=== PATIENT | male | born 1955 ===

== ENCOUNTER 2023-06-11 21:11 | Observation (INO) ==
[2023-06-11] MEDS: Morphine 4 MG/ML VIAL (1 ml) IV ONE (22:01)
[2023-06-11] MEDS: Lactated Ringers 1000 ml BAG 1,000 ML IV ONE (22:03)
[2023-06-11 22:14] LABS: ABS Eosinophils 0.1 10^3/uL (0.0-0.5); ABS Lymphocytes 0.7 10^3/uL (1.0-4.8); ABS Monocytes 0.6 10^3/uL (0.0-1.1); ABS Neutrophils 6.5 10^3/uL (1.5-7.6); ABS Nucleated RBC 0.01 10^3/ul; Eosinophil % 0.9 %; Hematocrit 48.4 % (38-53); Hemoglobin 16.7 g/dL (13.2-16.3); Lymphocyte % 9.3 %; Mean Corpuscular Hemoglobin 30.5 pg (27-33); Mean Corpuscular Hgb Conc 34.4 g/dL (31-36); Mean Corpuscular Volume 88.6 fL (80-97); Mean Platelet Volume 8.1 fL (7.5-11.2); Nucleated Red Blood Cells % 0.1 %/100WBC (0.0-0.8); Platelet Count 161 10^3/uL (150-450); Red Blood Count 5.46 10^6/uL (4.06-5.63); Red Cell Distribution Width 13.8 % (12-17)
[2023-06-11 23:06] LABS: Albumin 4.5 g/dL (3.2-5.2); Albumin/Globulin Ratio 1.9 (1-3); Calcium 9.6 mg/dL (8.6-10.3); Creatinine, Serum 0.9 mg/dL (0.67-1.17); Globulin 2.4 g/dL (2-4); Potassium 4.2 mmol/L (3.5-5.0); Total Bilirubin 0.7 mg/dL (0.2-1.0); Total Protein 6.9 g/dL (6.4-8.9)
[2023-06-11] MEDS ORDERED: Ondansetron 4 mg VIAL 2 MG/ML 2 ml VIAL ONE (23:44)
[2023-06-11] MEDS: Ondansetron 4 mg VIAL 2 MG/ML 2 ml VIAL IV ONE (23:46)
[2023-06-12] MEDS: Lactated Ringers 1000 ml BAG 1,000 ML IV ONE (00:07)
[2023-06-12] MEDS: Iohexol 300 (CONTRAST) 10 ML SDV IV ONE (01:29)
[2023-06-12] MEDS: Morphine 4 MG/ML VIAL (1 ml) IV ONE (02:53)
[2023-06-12] MEDS: Morphine 2 MG/ML SYRINGE IV PRN (05:19)
[2023-06-12] MEDS ORDERED: Morphine 2 MG/ML SYRINGE IV PRN (06:16)
[2023-06-12] MEDS ORDERED: HYDROmorphone 1 MG/1 ML SYRINGE IV SLOW PU PRN (06:17)
[2023-06-12] MEDS ORDERED: Ondansetron 4 mg VIAL 2 MG/ML 2 ml VIAL IV PRN (06:43)
[2023-06-12] MEDS: NS 0.9% 1000 ml BAG 1,000 ML IV SCH (06:50)
[2023-06-12] MEDS: Acetaminophen IV 1 GM/100ML 1,000 MG/100 ML BAG IV SCH (07:28)
[2023-06-12 14:28] VITALS: BP 104/60
== END 2023-06-12 15:20 | disposition home or self-care (01) | DRG 390 ==
LOC: ED 21:11 → EDHOLD 21:11 → SUATTDRO 06-12 04:01 → SSU 06-12 04:58
PROVIDERS: ADMIT Internal Medicine; ATTEND Internal Medicine